=== PATIENT | female | born 1995 | race Caucasian/White ===

== ENCOUNTER 2017-01-04 16:30 | Emergency (ER) | payer SELFPAY ==
[2017-01-04] MEDS ORDERED: TYLENOL ONE (17:16)
[2017-01-04] MEDS ORDERED: TYLENOL PO ONE (17:18)
[2017-01-04] MEDS ORDERED: BICILLIN L-A IM ONE (20:45)
[2017-01-04] MEDS ORDERED: DELTASONE PO ONE (20:45)
--- NOTE | 2017-01-04 20:52 | Emergency Department Report ---
HPI - General Chief Complaint: Sore Throat Time Seen by Provider: 01/04/17 20:42 - HPI HPI: Patient is a 21 year-old male who presents to ED complaining of throat pain 1 day. Patient describes pain as throbbing in nature, 8 out of 10 intensity, nonradiating, localized to his throat. Admits pain with swallowing and eating. Patient admits no appetite due to throat pain. Patient admits dry, nonproductive cough. Patient admits fever since yesterday Patient denies chills/cough /nausea/vomiting/abdominal pain/shortness of breath/ chest pain/headache. ED Past Medical Hx - Past Medical History Previous Medical History?: No - Surgical History Past Surgical History?: No - Social History Smoking Status: Never Smoker Substance Use Type: Alcohol, Non Opiate Pain - Medications Home Medications: Home Medications Medication Instructions Recorded Confirmed Last Taken Type Ibuprofen [Motrin] 600 mg PO Q8H PRN #30 tablet 01/04/17 Unknown Rx ED Review of Systems ROS: Stated complaint: SORE THROAT Other details as noted in HPI Constitutional: denies: chills, fever, malaise, weakness Eyes: denies: eye pain, eye discharge, vision change ENT: throat pain. denies: ear pain, dental pain, hearing loss, congestion Respiratory: denies: cough, shortness of breath, wheezing Cardiovascular: denies: chest pain, palpitations, edema, syncope Endocrine: no symptoms reported Gastrointestinal: denies: abdominal pain, nausea, vomiting, diarrhea, constipation Genitourinary: denies: urgency, dysuria, frequency, hematuria, discharge Musculoskeletal: denies: back pain, joint swelling, arthralgia, myalgia Skin: denies: rash, lesions, pruritus Neurological: denies: headache, weakness, numbness, paresthesias, confusion, abnormal gait Psychiatric: denies: anxiety, depression Hematological/Lymphatic: denies: easy bleeding, easy bruising, swollen glands Physical Exam - Physical Exam Vital Signs: Vital Signs 01/04/17 01/04/17 17:01 17:56 Temperature 102.6 F H Pulse Rate 129 H Respiratory 18 Rate Blood Pressure 120/69 Physical Exam: GENERAL: Alert and oriented x3, no apparent distress, Normal Gait, atraumatic. HEAD: Head is normocephalic and a-traumatic. EYES: Extra ocular muscles are intact. Pupils are equal, round, and reactive to light and accommodation. EARS: symetrical, atraumatic, non tender, ear canal clear and moderate cerumen, tympanic membrance non inflamed. gross auditory nml bilaterally. NOSE: Nose symetrical, Nontender,Nares appeared normal. MOUTH:Mouth is well hydrated and without lesions. Tonsils erythematous and swollen with exudates, Uvula midline, Tongue not elevated. Mucous membranes are moist. Posterior pharynx with exudate . Patent airways. NECK: Supple. Non edematous, No carotid bruits. No lymphadenopathy or thyromegaly. LUNGS: Symetrical with respiration, No wheezing, no rales or crackles, CTAB. HEART: S1, S2 present, regular rate and rhythm without murmur, no rubs, no gallops. ABDOMEN: No organomegaly was noted,Positive bowel sounds, soft, and non- distended. . Nontender to palpation on all Quadrants, NO CVA tenderness. EXTREMITIES/MUSCULOSKELETAL: No cyanosis, clubbing, rash, lesions or edema. NEUROLOGIC: No focal Deficit, Cranial nerves II through XII are grossly intact. No loss of sensation, SKIN: Warm and dry, No lesions, No ulceration or induration present. ED Course Vital Signs 01/04/17 01/04/17 17:01 17:56 Temperature 102.6 F H Pulse Rate 129 H Respiratory 18 Rate Blood Pressure 120/69 ED Medical Decision Making - Medical Decision Making 21-year-old female presents with strep pharyngitis. ED course: Patient received 650 mg of Tylenol for fever and an administration of 1.2 million units of penicillin. Patient was being physical difficult with nurse during administration of penicillin. Patient multiple scratches from the needle. Patient moved so much during the administeration of the penicillin that the needle stuck The nurse. Protocol labs ordered and drawn from patient. After incident patient was ready to leave and stated she is being here and is ready to leave. I advised patient to wait for discharge instructions and paperwork. Discussed the patient to follow up with primary care physician. Discussed home medication of Motrin for pain. Patient is in no acute or respiratory distress. Critical care attestation.: If time is entered above; I have spent that time in minutes in the direct care of this critically ill patient, excluding procedure time. ED Disposition Clinical Impression: Strep pharyngitis, Tonsillitis Disposition: DISCHARGED TO HOME OR SELFCARE Is pt being admited?: No Does the pt Need Aspirin: No Condition: Stable Instructions: Strep Throat (ED), Tonsillitis (ED) Prescriptions: Ibuprofen [Motrin] 600 mg PO Q8H PRN #30 tablet PRN Reason: Pain Referrals: PRIMARY CARE,MD [Primary Care Provider] - 3-5 Days CHAPIN SCHMIDT MD [Referring] - 3-5 Days ZHOU URBAN MD [Referring] - 3-5 Days Forms: Accompanied Note, Work/School Release Form(ED) Time of Disposition: 21:59
[2017-01-04 23:22] VITALS: BP 118/76
== END 2017-01-04 23:22 | disposition home or self-care (01) ==
LOC: ED 16:30
DX: J02.0 Streptococcal pharyngitis (principal); J03.90 Acute tonsillitis, unspecified
CPT/HCPCS: 87430; 96372; 99282; J0561; J7512